=== PATIENT | male | born 1970 | race Caucasian/White ===

== ENCOUNTER 2023-06-27 08:38 | Outpatient (CLI) | payer OTHER, SELFPAY | END 2023-06-27 08:39 | disposition home or self-care (01) | PROVIDERS: PCP Family Medicine; Visit Provider Family Medicine | DX: E78.5 Hyperlipidemia, unspecified (principal); I10 Essential (primary) hypertension; Z12.5 Encounter for screening for malignant neoplasm of prostate | CPT/HCPCS: 80048; 80061; 84153 ==

== ENCOUNTER 2023-10-04 08:41 | Outpatient (CLI) | payer BC, SELFPAY ==
--- OUTSIDE RECORDS SUMMARY | 2023-10-04 08:54 | XMS_ITS | Clinical Summary ---
Author Name Unknown Organization [employer] [facility] Address [place], [place] [address] Care Team Providers Care Manager Leadership Development Name Role Phone Clinic, No Pcp Or Primary Care Provider Unavaila ble Allergies No known active allergies Medications Medication Sig Dispensed Refills Start Date End Date Status oxyCODONE-acetaminophe n, 5-325 mg, (PERCOCET) 5-325 mg per tabletIndications:Acut e appendicitis, unspecified acute appendicitis type Take 1-2 tablets by mouth every 4 hours if needed for Pain. 30 tablet 0 11/29/2016 Active indomethacin (INDOCIN) 25 mg capsule Take 25 mg by mouth 3 times daily if needed for Gout Pain. 0 Active oxyCODONE (ROXICODONE) 5 mg immediate release tabletIndications:Clos ed displaced fracture of fifth metatarsal bone of left foot, initial encounter Take 1-2 tablets by mouth every 6 hours if needed for Pain 12 tablet 0 03/31/2019 Active rx oxyCODONE 5 mg (ROXICODONE) tablet (ED DC MED)Indications:Closed displaced fracture of fifth metatarsal bone of left foot, initial encounter Take 1-2 tablets by mouth every 6 hours if needed for Pain 4 tablet 0 03/31/2019 Active Social History Tobacco Use Types Packs/Day Years Used Date Smoking Tobacco: Never Smokeless Tobacco: Never Alcohol Use Standard Drinks/Week Comments Yes 0 (1 standard drink = 0.6 oz pur e alcohol) occasionally Sex and Gender Information Value Date Recorded Sex Assigned at Not on file Gender Identity Not on file Sexual Orientation Not on file Obstetrics History Last Filed Vital Signs Vital Sign Reading Time Taken Comments Blood Pressure 148/101 03/31/2019 4:21 PM CDT Pulse 79 03/31/2019 4:21 PM CDT Temperature 36.9 ??C (98.4 ??F) 03/31/2019 4:21 PM CD T Respiratory Rate 20 03/31/2019 4:21 PM CDT Oxygen Saturation 97% 03/31/2019 4:21 PM CDT Inhaled Oxygen Concentration - - Weight 90.7 kg (200 lb) 03/31/2019 4:21 PM CDT Height 180.3 cm (5' 11) 03/31/2019 4:21 PM CDT Body Mass Index 27.89 03/31/2019 4:21 PM CDT Plan of Treatment Health Maintenance Due Date Last Done Comments COVID-19 vaccine series (#1) 06/05/1970 Tdap 1980 Depression screening for age 12+ 1981 HIV for age 15-65 1984 BMI (ht and wt on same day) for age 18+ 12/05/1987 Hepatitis C screening for ag e 18-79 12/05/1987 Tetanus booster 1989 Colonoscopy through age 75 2014 Lipids for age 45-75 2014 Zoster (shingles) series for age 50+ (1 of 2) 12/05/2019 Influenza for age 50-64 04/29/2023 Pneumococcal series for age 6-64 Aged Out No longer eligible based on patient's age to complete this topic Advance Directives Latest Code Status on File Code Status Date Activated Date Inactivated Comments Full Code 11/29/2016 12:06 AM 12/02/2016 9:06 PM Care Teams Manager Leadership Development Relationship Specialty Start Date End Date Clinic, No Pcp Or . PCP - General 03/31/19
== END 2023-10-04 08:42 | disposition home or self-care (01) ==
LOC: FBOREF 08:44
PROVIDERS: PCP Family Medicine; Visit Provider Family Medicine
DX: E03.9 Hypothyroidism, unspecified (principal)
CPT/HCPCS: 84439; 84443

== ENCOUNTER 2024-04-02 09:15 | Outpatient (CLI) | payer BC, SELFPAY ==
--- OUTSIDE RECORDS SUMMARY | 2024-04-03 14:23 | XMS_ITS | Clinical Summary ---
Author Organization [employer] [facility] Address [place], [place] [address] Care Team Providers Care Screwhead Stoner And Polisher Name Role Phone Clinic, No Pcp Or Primary Care Provider Unavaila ble Allergies No known active allergies Medications Medication Sig Dispensed Refills Start Date End Date Status oxyCODONE-acetaminophe n, 5-325 mg, (PERCOCET) 5-325 mg per tabletIndications:Acut e appendicitis, unspecified acute appendicitis type Take 1-2 tablets by mouth every 4 hours if needed for Pain. 30 tablet 11/29/2016 Active indomethacin (INDOCIN) 25 mg capsule Take 25 mg by mouth 3 times daily if needed for Gout Pain. Active oxyCODONE (ROXICODONE) 5 mg immediate release tabletIndications:Clos ed displaced fracture of fifth metatarsal bone of left foot, initial encounter Take 1-2 tablets by mouth every 6 hours if needed for Pain 12 tablet 03/31/2019 Active rx oxyCODONE 5 mg (ROXICODONE) tablet (ED DC MED)Indications:Closed displaced fracture of fifth metatarsal bone of left foot, initial encounter Take 1-2 tablets by mouth every 6 hours if needed for Pain 4 tablet 03/31/2019 Active Social History Tobacco Use Types [...] Health Maintenance Due Date Last Done Comments Tdap 1980 Depression screening for age 12+ 1981 HIV for age 15-65 1984 BMI (ht and wt on same day) for age 18+ 12/05/1987 Hepatitis C screening for ag e 18-79 12/05/1987 Tetanus booster 1989 Colonoscopy through age 75 2014 Lipids for age 45-75 2014 Zoster (shingles) series for age 50+ (1 of 2) 12/05/2019 COVID-19 vaccine series (2022-24 season) 2023 Influenza for age 50-64 04/29/2024 Pneumococcal series for age 6-64 Aged Out No longer eligible based on patient's age to complete this topic Advance Directives * Full Code (Latest Code Status on File) Date Activated Date Inactivated Comments 11/29/2016 12:06 AM 12/02/2016 9:06 PM Care Teams Screwhead Stoner And Polisher Relationship Specialty Start Date End Date Clinic, No Pcp Or . PCP - General 03/31/19
== END 2024-04-02 09:16 | disposition home or self-care (01) ==
LOC: NFLDREF 04-03 14:22
PROVIDERS: PCP Family Medicine; Referring Provider Family Medicine; Visit Provider Family Medicine
DX: E03.9 Hypothyroidism, unspecified (principal)
CPT/HCPCS: 84443

== ENCOUNTER 2024-09-18 09:15 | Outpatient (CLI) | payer BC, SELFPAY | END 2024-09-18 09:16 | disposition home or self-care (01) | LOC: NFLDREF 09-19 01:49 | PROVIDERS: PCP Family Medicine; Referring Provider Family Medicine; Visit Provider Family Medicine | DX: E78.2 Mixed hyperlipidemia (principal); I10 Essential (primary) hypertension; Z12.5 Encounter for screening for malignant neoplasm of prostate | CPT/HCPCS: 80048; 80061; 84460; G0103 ==

== ENCOUNTER 2025-03-05 12:04 | Emergency (ER) | payer BC, SELFPAY ==
[2025-03-05] VITALS (9 sets, daily range): BP systolic 108–149; BP diastolic 65–108; PULSE 66–82; RESP 9–20; TEMP 36.2; O2SAT 94–99; BMI 27.9
--- OUTSIDE RECORDS SUMMARY | 2025-03-05 12:05 | XMS_ITS | Clinical Summary ---
Author Organization [employer] [facility] Address [address] [place] [id number] Care Team Providers Care Keying Machine Operator Name Role Phone Clinic, No Pcp Or Primary Care Provider Unavaila ble Allergies No known active allergies Medications oxyCODONE-acetami nophen, 5-325 mg, (PERCOCET) 5-325 mg per tabletIndications :Acute appendicitis, unspecified acute appendicitis type Take 1-2 tablets by mouth every 4 hours if needed for Pain. 30 tablet 7 Active indomethacin (INDOCIN) 25 mg capsule Take 25 mg by mouth 3 times daily if needed for Gout Pain. Active oxyCODONE (ROXICODONE) 5 mg immediate release tabletIndications :Closed displaced fracture of fifth metatarsal bone of left foot, initial encounter Take 1-2 tablets by mouth every 6 hours if needed for Pain 12 tablet 9 Active rx oxyCODONE 5 mg (ROXICODONE) tablet (ED DC MED)Indications:C losed displaced fracture of fifth metatarsal bone of left foot, initial encounter Take 1-2 tablets by mouth every 6 hours if needed for Pain 4 tablet 9 Active Social History Tobacco Use Types Packs/Day Years Used Date Smoking Tobacco: Never Smokeless Tobacco: Never Alcohol Use Standard Drinks/Week Comments Yes 0 (1 standard drink = 0.6 oz pur e alcohol) occasionally Sex and Gender Information Value Date Recorded Sex Assigned at Not on file 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 Gender Identity Not on file Sexual Orientation Not on file Obstetrics History Last Filed Vital Signs Vital Sign Reading Time Taken Comments Blood Pressure 148/101 03/31/2019 4:21 PM CDT Pulse 79 03/31/2019 4:21 PM CDT Temperature 36.9 C (98.4 F) 03/31/2019 4:21 PM CDT Respiratory Rate 20 03/31/2019 4:21 PM CDT Oxygen Saturation 97% 03/31/2019 4:21 PM CDT Inhaled Oxygen Concentration - - Weight 90.7 kg (200 lb) 03/31/2019 4:21 PM CDT Height 180.3 cm (5' 11) 03/31/2019 4:21 PM CDT Body Mass Index 27.89 03/31/2019 4:21 PM CDT Plan of Treatment Health Maintenance Due Date Last Done Comments Tetanus booster 1980 Depression screening for age 12+ 1981 HIV for age 15-65 1984 BMI (ht and wt on same day) for age 18+ 12/05/1987 Hepatitis C screening for age 18-79 12/05/1987 Hepatitis B series for 19+ (1 of 3 - 19+ 3-dose series ) 1988 Colonoscopy through age 75 2014 Lipids for age 45-75 2014 Pneumococcal series for age 50+ (1 of 1 - PCV) 020 Zoster (shingles) series for age 50+ (1 of 2) 12/05/19 20 COVID-19 vaccine series ( - 2023- season) 4 Influenza Vaccine (#1) [address] [facility] Advance Directives * Full Code (Latest Code Status on File) Date Activated Date Inactivated Comments 11/29/2016 12:06 AM 12/02/2016 9:06 PM Care Teams Keying Machine Operator Relationship Specialty Start Date End Date Clinic, No Pcp Or . PCP - General 03/31/19
--- NOTE | 2025-03-05 12:34 | CRLHL7_ITS ---
For Patients: As a result of the Cures Act, medical imaging exams and procedure reports are released immediately into your electronic medical record. You may view this report before your referring provider. If you have questions, please contact your health care provider. Indication: Fall, shoulder pain Technique: Three views left shoulder Comparison: None Findings/Impression: Dislocation at the level of the left glenohumeral joint with anteromedial dislocation of the left humerus. No definite fracture seen. Mild underlying osteoarthritis at the acromioclavicular joint. Dictated by José Antonio Payan MD @ 03/05/2025 1:58:56 PM (Electronically Signed)
--- NOTE | 2025-03-05 13:07 | ED.GENADULT ---
HPI - General Adult General Chief complaint: Shoulder Injury/Pain Stated complaint: Torn hamstring, L arm injury Time Seen by Provider: 03/05/25 12:29 History of Present Illness HPI narrative: This 54-year-old male was playing softball and injured himself while running toward home plate. He fell and injured his left shoulder. He also states that he strained his right hamstring. He was able to get up and ambulate and did not hit his head or have loss of consciousness. He complains of severe pain in his left shoulder region. There appears to be anterior fullness typical of a dislocation. Related Data Previous Rx's ?Medication ?Instructions ?Recorded lisinopril 10 1 tab PO DAILY #90 tabs 10/03/24 mg-hydrochlorothiazide 12.5 mg tablet omeprazole 20 mg capsule,delayed 20 mg PO QDAY #90 caps 10/03/24 release lorazepam 1 mg tablet 1 mg PO QHS PRN sleep #30 tabs 01/29/25 hydrocodone 5 mg-acetaminophen 325 1 tab PO Q4-6H PRN pain #15 tabs 03/05/25 mg tablet Allergies Allergy/AdvReac Type Severity Reaction Status Date / Time No Known Drug Allergies Allergy Verified 03/05/25 12:23 Review of Systems Status of ROS: Reports: 10 or more systems reviewed and unremarkable except as noted in History and below Narrative: Constitutional: No fevers, no weight gain or loss. Eyes: No discharge. No vision changes. HENT: No congestion, no sore throat, no ear pain. Cardiovascular: No chest pain, no palpitations. Respiratory: No shortness of breath, no wheezes, no cough. Gastrointestinal: No abdominal pain, no vomiting, no diarrhea. Genitourinary: No dysuria, no hematuria. Musculoskeletal: Left shoulder injury as described above. Strain of the right hamstring. Skin: No rashes, no pruritis. Neurological: No dizziness, weakness, sensory change, speech change. Endo/Heme/Allergies: No bruising or bleeding. No polydipsia. Pysch: no suicidality, no anxiety, no insomnia. All other systems reviewed and are negative. [facility] Medical History (Updated 03/05/25 @ 14:49 by Ric Segal MD) GERD (gastroesophageal reflux disease) ?K21.9 - Gastro-esophageal reflux disease without esophagitis (ICD-10) Hypothyroidism ?E03.9 - Hypothyroidism, unspecified (ICD-10) Gout ?M10.9 - Gout, unspecified (ICD-10) Primary hypertension ?I10 - Essential (primary) hypertension (ICD-10) Mixed hyperlipidemia ?E78.2 - Mixed hyperlipidemia (ICD-10) Infection due to severe acute respiratory syndrome coronavirus 2 (SARS-CoV-2) (06/2021) ?U07.1 - COVID-19 (ICD-10) Reactive airway disease ?J45.909 - Unspecified asthma, uncomplicated (ICD-10) Insomnia ?G47.00 - Insomnia, unspecified (ICD-10) History of deep venous thrombosis (08/14/21) ?Z86.718 - Personal history of other venous thrombosis and embolism (ICD-10) Surgical History (Updated 03/08/22 @ 08:32 by Joao Gomes) Status post right foot surgery ?Z98.890 - Other specified postprocedural states (ICD-10) History of appendectomy ?Z90.49 - Acquired absence of other specified parts of digestive tract (ICD-10) Social History (Updated 10/03/24 @ 09:04 by Marilin Khan ~ RMA, RMA) 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: , 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, 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, 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 What is your current living situation?: I presently have a place to live Problems where you live: no known problems In the past 12 months, utilities in danger of being shut off: no In past 12 months, lack of transportation kept you from medical appts, meetings, work, or getting things needed for daily living: no In the past 12 mos, have been you worried that your food would run out before you had money to buy more?: never true In the past 12 mos, the food you bought just didn't last and you didn't have money to buy more?: never true Smoking Status: Never smoker How often do you have a drink containing alcohol: monthly or less AUDIT-C Alcohol total score: 1 Non-prescribed substance use: denies use How often does anyone, including family, friends and others, physically hurt you: never How often does anyone, including family, friends and others, insult or talk down to you: never How often does anyone, including family, friends and others, threaten you with harm: never How often does anyone, including family, friends and others, scream or curse at you: never Exam Narrative: Exam Narrative: Constitutional: Well-developed, well-nourished, no acute distress. HEENT: Normocephalic, atraumatic. Neck: Normal range of motion. Nontender. Supple. Heart: Regular. No murmurs. Normal rate. Intact distal pulses. Lungs: Clear to auscultation. No chest discomfort. No wheezes, rhonchi, or rales. Abdomen: Normal bowel sounds. Nontender. No rebound tenderness. Genitalia: Deferred. Back: No midline tenderness. Normal range of motion. Extremities: Left shoulder has anterior fullness typical of a dislocation. No pain when palpating along the clavicle. Skin: Intact. No rash. Warm. No erythema or pallor. Neurologic: No altered sensation. No weakness. Alert and oriented. Psychiatric: No suicidality. No anxiety or depression. No insomnia. Nursing notes and vitals signs are reviewed. Const: Vital Signs, click to edit/add: Vital Signs - 24 hr 03/05/25 12:18 03/05/25 13:01 03/05/25 13:15 Temperature 97.2 F L Pulse Rate 66 66 Pulse Rate [Right Pulse Oximeter] 82 Respiratory Rate 18 Blood Pressure Blood Pressure [Le ft Upper Arm] 111/74 Pulse Oximetry 96 94 94 Oxygen Delivery Me thod Room Air Oxygen Flow Rate 03/05/25 14:00 03/05/25 14:02 03/05/25 14:07 Temperature Pulse Rate 79 73 Pulse Rate [Right Pulse Oximeter] Respiratory Rate 11 L 9 L 9 L Blood Pressure 149/108 H 108/83 Blood Pressure [Le ft Upper Arm] Pulse Oximetry 98 99 Oxygen Delivery Me thod Nasal Cannula Nasal Cannula Oxygen Flow Rate 2 2 03/05/25 14:12 03/05/25 14:15 Temperature Pulse Rate 81 76 Pulse Rate [Right Pulse Oximeter] Respiratory Rate 20 19 Blood Pressure 109/65 Blood Pressure [Le ft Upper Arm] Pulse Oximetry 97 97 Oxygen Delivery Me thod Nasal Cannula Nasal Cannula Oxygen Flow Rate 2 2 Course Vital Signs Vital signs: Initial Vital Signs Temperature 97.2 F L 03/05/25 12:18 Temperature Source Temporal Artery Scan 03/05/25 12:18 Pulse Rate 82 03/05/25 12:18 Pulse Rhythm Regular 03/05/25 12:18 Pulse Strength 3+ Normal 03/05/25 12:18 Respiratory Rate 18 03/05/25 12:18 Blood Pressure 111/74 03/05/25 12:18 Blood Pressure Mean 86 03/05/25 12:18 Blood Pressure Position Sitting 03/05/25 12:18 Pulse Oximetry 96 03/05/25 12:18 Oxygen Delivery Method Room Air 03/05/25 12:18 Vital Signs Temperature 97.2 F L 03/05/25 12:18 Pulse Rate 82 03/05/25 12:18 Respiratory Rate 18 03/05/25 12:18 Blood Pressure 111/74 03/05/25 12:18 Pulse Oximetry 96 03/05/25 12:18 Oxygen Delivery Method Room Air 03/05/25 12:18 Temperature 97.2 F L 03/05/25 12:18 Pulse Rate 76 03/05/25 14:15 Respiratory Rate 19 03/05/25 14:15 Blood Pressure 109/65 03/05/25 14:12 Pulse Oximetry 97 03/05/25 14:15 Oxygen Delivery Method Nasal Cannula 03/05/25 14:15 Oxygen Flow Rate 2 03/05/25 14:15 Medications Administered Medications: Discontinued Medications Generic Name Dose Route Start Last Admin Trade Name Freq PRN Reason Stop Dose Admin Hydromorphone HCl 0.5 mg 03/05/25 12:34 03/05/25 12:41 Hydromorphone 0.5 Mg/0.5 Ml Inj IVP 03/05/25 12:35 0.5 mg ONCE ONE Administration Medical Decision Making [facility] Narrative Medical decision making narrative: This patient comes in with injury to his left shoulder and is suspicious for a dislocation. X-ray imaging shows evidence of shoulder dislocation. The patient had not had any food since yesterday and so anesthesia was contacted and. After acquiring informed consent the patient received a total of 140 mg of propofol which afforded sufficient relaxation. I was able to relocate the shoulder without much difficulty and follow-up x-ray shows the head of the humerus in proper position. The patient was placed in a sling. He is okay to be discharged home. I did provide a prescription for [place] tablets and encouraged him to follow-up with orthopedic clinic. Discharge Plan Discharge Clinical Impression: Anterior shoulder dislocation Patient Disposition: Home w/ Parent or Adult Condition: Improved Additional Instructions: Wear sling and use pain medicine as needed and directed. Follow-up with orthopedic clinic for ongoing management. Call [phone] for appointment. Prescriptions: New hydrocodone-acetaminophen 5-325 mg tablet 1 tab PO Q4-6H PRN (Reason: pain) Qty: 15 0RF No Action lisinopril-hydrochlorothiazide 10-12.5 mg tablet 1 tab PO DAILY Qty: 90 3RF omeprazole 20 mg capsule,delayed release(DR/EC) 20 mg PO QDAY Qty: 90 3RF lorazepam 1 mg tablet 1 mg PO QHS PRN (Reason: sleep) Qty: 30 0RF Follow Up/Referrals: Mitchell Wilkerson MD [Primary Care Provider, Family Practice] Stand Alone Forms: [employer] Info Instructions
[2025-03-05] MEDS: 0.9 % SODIUM CHLORIDE 500 ML 500 ML IV (14:05)
--- NOTE | 2025-03-05 14:07 | CRLHL7_ITS ---
For Patients: As a result of the Cures Act, medical imaging exams and procedure reports are released immediately into your electronic medical record. You may view this report before your referring provider. If you have questions, please contact your health care provider. Indication: Post reduction Technique: One view of the left shoulder Comparison: Same-day left shoulder radiograph Findings/Impression: Successful reduction of the previously visualized left anterior shoulder dislocation, now in anatomic alignment. No fracture. Dictated by Mario Zepeda MD @ 03/05/2025 7:13:51 PM (Electronically Signed)
--- NOTE | 2025-03-05 14:24 | P.ANES_ITS ---
Anesthesia Charges Start Date/Time Anesthesia Start Date: 03/05/25 Anesthesia Start Time: 14:01 Stop Date/Time Anesthesia Stop Date: 03/05/25 Anesthesia Stop Time: 14:15 Coding CPT Codes CPT Codes: ANESTH SHOULDER PROCEDURE - 36226 ([id number]) P2 - PATIENT W/MILD SYST DISEASE, QZ - MANAGER HOSPICE SVC W/O INFANTRY WEAPONS OFFICER BY
--- NOTE | 2025-03-05 14:24 | W.ANESCHARGE ---
Anesthesia Charges Start Date/Time Anesthesia Start Date: 03/05/25 Anesthesia Start Time: 14:01 Stop Date/Time Anesthesia Stop Date: 03/05/25 Anesthesia Stop Time: 14:15 Coding CPT Codes CPT Codes: ANESTH SHOULDER PROCEDURE - 79849 ([id number]) P2 - PATIENT W/MILD SYST DISEASE, QZ - BUSINESS SYSTEMS TECHNICIAN SVC W/O WRAPPER LEAF INSPECTOR BY
[2025-03-05] MEDS: PROPOFOL 10 MG/ML INJ 140 MG IVP (15:24)
== END 2025-03-05 15:39 | disposition home or self-care (01) ==
PROVIDERS: Emergency Provider Emergency Medicine Emergency Medical Services; PCP Family Medicine
DX: S43.005A Unspecified dislocation of left shoulder joint, initial encounter (principal); M79.605 Pain in left leg; Y93.64 Activity, baseball
CPT/HCPCS: 23650; 01620; 73020; 73030; 96361; 96374; 96376; 99284; 99285; 99291; J1171; J2704; J7030

== ENCOUNTER 2025-05-01 09:51 | Outpatient (CLI) | payer BC, SELFPAY | END 2025-05-01 09:52 | disposition home or self-care (01) | LOC: NFLDREF 05-11 03:35 | PROVIDERS: PCP Family Medicine; Referring Provider Family Medicine; Visit Provider Family Medicine | DX: E03.9 Hypothyroidism, unspecified (principal) | CPT/HCPCS: 84443 ==